=== PATIENT | female | born 1965 | race Caucasian/White ===

== ENCOUNTER 2016-12-10 07:15 | Emergency (ER) | payer MEDICAID ==
[~2016-12-10] VITALS: Ht 172.7 cm; Wt 85.0 kg
[~2016-12-10 07:15] MED LIST: CEPH500C3 PO; IBUP800T23 PO
[2016-12-10 07:19] VITALS: BP 164/85; PULSE 86; RESP 16; TEMP 98; O2SAT 97
--- NOTE | 2016-12-10 07:30 | PD ---
HPI . Right hip pain status post fall Chief Complaint: Fall Time Seen by Provider: 07:30 Travel History International Travel<30 days: No Contact w/Intl Traveler<30days: No Traveled to known affect area: No History of Present Illness HPI 51-year-old female with a history of anemia here with complaints of right hip pain status post fall yesterday around 2 PM. Patient had just finished cleaning a floor when she accidentally slipped and fell hurting her right hip. She is now complaining of difficulty moving her right hip. She does have some difficulty bearing weight, but is ambulatory. She says she thinks she may have pulled a muscle, however she is wanting to make sure she does not have any type of fracture as the pain feels deep within. She rates the pain as 8/10 without any radiation elsewhere. She denies any bowel or bladder dysfunction. She denies any saddle anesthesia. She has no other complaints. 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) Anxiety: No Depression: No Heart Rhythm Problems: No Cancer: Yes (uterine ) Cardiovascular Problems: No High Cholesterol: No Chemotherapy: No Chest Pain: No Congestive Heart Failure: No COPD: No Cerebrovascular Accident: No Diabetes: No Diminished Hearing: No Endocrine: No GERD: No Genitourinary: No Hiatal Hernia: No Immune Disorder: No Kidney Stones: No Musculoskeletal: Yes Neurologic: Yes Psychiatric: No Reproductive: No Respiratory: No Immunizations Current: No Migraines: Yes Radiation Therapy: No Renal Failure: No Seizures: No Sickle Cell Disease: No Sleep Apnea: No Thyroid Disease: No Ulcer: No ?: Not Tubal Ligation: Yes Past Surgical History Abdominal Surgery: No AICD: No Arteriovenous Shunt: No Cardiac Surgery: No Section: Yes Ear Surgery: Yes Endocrine Surgery: No Eye Surgery: No Genitourinary Surgery: No Gynecologic Surgery: Yes (tubal ligation in 2006) Insulin Pump: No Joint Replacement: No Oral Surgery: No Pacemaker: No Thoracic Surgery: No Other Surgery: Yes Social History Alcohol Use: No Tobacco Use: Yes Substance Use: No Allergies-Medications (Allergen,Severity, Reaction): Coded Allergies: Penicillin (Verified Allergy, Unknown, 12/10/16) Reported Meds & Prescriptions Reported Meds & Active Scripts Active Ibuprofen 800 Mg Tab 800 Mg PO TID Flexeril (Cyclobenzaprine HCl) 5 Mg Tab 5 Mg PO TID Review of Systems General / Constitutional: No: Fever Eyes: No: Visual changes HENT: No: Headaches Cardiovascular: No: Chest Pain or Discomfort Respiratory: No: Shortness of Breath Gastrointestinal: No: Abdominal Pain Genitourinary: No: Dysuria Musculoskeletal: Positive: Pain (right hip) Skin: No Rash Neurologic: No: Weakness Psychiatric: No: Depression Endocrine: No: Polydipsia Hematologic/Lymphatic: No: Easy Bruising Physical Exam Narrative GENERAL: AAO x 3, no acute distress, Well-nourished, well-developed patient. SKIN: Warm and dry. No visible rashes or bruising. HEAD: Normocephalic and atraumatic. EYES: No scleral icterus. No injection or drainage. ENT: No nasal drainage noted. Mucous membranes pink. Airway patent. NECK: Supple, trachea midline. No JVD. CARDIOVASCULAR: Regular rate and rhythm without murmurs, gallops, or rubs. RESPIRATORY: Breath sounds equal bilaterally. No accessory muscle use. No rhonchi or rales. GASTROINTESTINAL: Abdomen soft, non-tender, nondistended. EXTREMITIES: No cyanosis or edema. FULL ROM in right hip. Pain elicited with internal rotation of right hip joint. No bruising or edema. BACK: Nontender without obvious deformity. No CVA tenderness. PSYCH: AAO x 3, normal affect. Data Data Last Documented VS Vital Signs Date Time Temp Pulse Resp B/P Pulse Ox O2 Delivery O2 Flow Rate FiO2 12/10/16 07:33 Room Air 12/10/16 07:19 98.0 86 16 164/85 97 Orders Ibuprofen (Motrin) (12/10/16 07:45) Hip, Uni(Ap&Lat) W Ap Pelvis (12/10/16 07:33) MDM Medical Decision Making Medical Screen Exam Complete: Yes Emergency Medical Condition: Yes Medical Record Reviewed: Yes Differential Diagnosis right hip pain s/p fall, bone contusion,less likely fracture, muscle strain Narrative Course 51-year-old female with a history of anemia here with complaints of right hip pain status post fall yesterday around 2 PM. Patient had just finished cleaning a floor when she accidentally slipped and fell hurting her right hip. She is now complaining of difficulty moving her right hip. She does have some difficulty bearing weight, but is ambulatory. She says she thinks she may have pulled a muscle, however she is wanting to make sure she does not have any type of fracture as the pain feels deep within. She rates the pain as 8/10 without any radiation elsewhere. She denies any bowel or bladder dysfunction. She denies any saddle anesthesia. She has no other complaints. Patient seen and examined. She does have some pain elicited with internal rotation of the right hip. She also has some difficulty ambulating. I do not suspect a bony injury however I will go ahead and check an x-ray. Patient was given ibuprofen 800 mg in the ED for pain relief. If x-ray is negative, I will discharge her home with a course of muscle relaxers to see if that will help. I will also give her some ibuprofen for inflammation. If pain persists past 7-10 days, she will need to follow-up with primary care provider. Last Impressions Hip and Pelvis X-Ray 12/10/16 0733 Signed Impressions: Service Date/Time: Saturday, December 10, 2016 07:52 - CONCLUSION: No acute disease. Mikel Pate MD I discussed results with the patient. She was happy as she now knows she does not have a fracture. Meds discussed. She was in agreement with treatment plan. Patient verbalized understanding of instructions, questions were answered, and thanked me for their care. I advised them if their condition worsens, please return to the nearest emergency room for further care. Diagnosis Primary Impression: Right hip pain Additional Impression: Strain of muscle of right hip Qualified Code: S76.011A - Strain of muscle of right hip, initial encounter Patient Instructions: General Instructions Additional Instructions: Please return to emergency department if your symptoms return or worsen. Follow up with your primary care provider. Take medications as prescribed. If pain persists past 7-10 days, please follow-up with primary care provider. Rest the affected area as much as possible. Ice this area for 15-20 minutes at a time. You can do this every hour or as much as tolerated. Med/Other Pt SpecificInfo: Prescription(s) given Scripts Ibuprofen 800 Mg [id number] Mg PO TID #21 TAB Prov:Rahul Russell MD 12/10/16 Cyclobenzaprine (Flexeril)5 Mg Tab5 Mg PO TID #21 TAB Prov:Rahul Russell MD 12/10/16 Disposition: 01 DISCHARGE HOME Condition: Stable Emily Mccartney Dec 10, 2016 07:30
[2016-12-10] MEDS ORDERED: IBUPROFEN 800 MG TAB PO ONE (07:45)
--- NOTE | 2016-12-10 08:10 | RADRPT ---
EXAM DATE/TIME: 12/10/2016 07:52 [facility] COMPARISON: No previous studies available for comparison. INDICATIONS : Right hip pain, fall. MEDICAL HISTORY : None. SURGICAL HISTORY : None. ENCOUNTER: Initial ACUITY: 2 days PAIN SCORE: 8/10 LOCATION: Right lateral hip FINDINGS: Examination of the right hip was performed with AP Pelvis. The primary and secondary trabecular mary sherrie of the femoral neck is intact. The hip joint is of normal width without significant sclerosis or bony hypertrophy. The acetabulum is grossly intact. CONCLUSION: No acute disease. Mikel Pate MD on December 10, 2016 at 8:08 Board Certified Radiologist. This report was verified electronically.
[2016-12-10] MEDS ORDERED: IBUP800T23 PO (08:21)
[2016-12-10] MEDS ORDERED: CYCL5TAB PO (08:21)
== END 2016-12-10 08:34 | disposition home or self-care (01) ==
LOC: NEPK 07:15
DX: M25.551 Pain in right hip (principal); W01.0XXA Fall on same level from slipping, tripping and stumbling without subsequent striking against object, initial encounter
CPT/HCPCS: 73502; 99283

== ENCOUNTER 2017-07-13 18:04 | Emergency (ER) | payer MEDICAID ==
[~2017-07-13] VITALS: Ht 172.7 cm; Wt 90.0 kg
[~2017-07-13 18:04] MED LIST changes: -CEPH500C3 PO; +CYCL5TAB PO; +IBUP1TAB7 PO; -IBUP800T23 PO
[2017-07-13 18:16] VITALS: BP 136/93; PULSE 68; RESP 18; TEMP 97.5; O2SAT 97
--- NOTE | 2017-07-13 18:39 | PD ---
HPI Chief Complaint: Musculoskeletal Complaint Time Seen by Provider: 18:24 Travel History International Travel<30 days: No Contact w/Intl Traveler<30days: No Traveled to known affect area: No History of Present Illness HPI 51-year-old female presents to department complaining of left knee pain that started just prior to arrival. States she was walking up her stairs and felt her knee go forward and backwards and then collapsed onto herself. Patient also heard 2 pops as the movement occurred. States her pain is severe and worse with movement. Patient had instant, severe pain. Patient denies numbness or tingling of the extremity. She is able to move the however, reluctant. Patient admits she has a torn meniscus and wears a brace normally. Denies medical issues or chronic medication use. 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) Anxiety: No Depression: No Heart Rhythm Problems: No Cancer: Yes (uterine ) Cardiovascular Problems: No High Cholesterol: No Chemotherapy: No Chest Pain: No Congestive Heart Failure: No COPD: No Cerebrovascular Accident: No Diabetes: No Diminished Hearing: No Endocrine: No GERD: No Genitourinary: No Hiatal Hernia: No Immune Disorder: No Kidney Stones: No Musculoskeletal: Yes (RIGHT KNEE MENISCUS) Neurologic: Yes Psychiatric: No Reproductive: No Respiratory: No Immunizations Current: No Migraines: Yes Radiation Therapy: No Renal Failure: No Seizures: No Sickle Cell Disease: No Sleep Apnea: No Thyroid Disease: No Ulcer: No ?: Not Menopausal: Yes Tubal Ligation: Yes Past Surgical History Abdominal Surgery: No AICD: No Arteriovenous Shunt: No Cardiac Surgery: No Section: Yes Ear Surgery: Yes Endocrine Surgery: No Eye Surgery: No Genitourinary Surgery: No Gynecologic Surgery: Yes (tubal ligation in 2006, ) Insulin Pump: No Joint Replacement: No Oral Surgery: No Pacemaker: No Thoracic Surgery: No Other Surgery: Yes Social History Alcohol Use: No Tobacco Use: Yes (1/2 ppd) Substance Use: No Allergies-Medications (Allergen,Severity, Reaction): Coded Allergies: penicillin G (Unverified Allergy, Unknown, 07/13/17) Reported Meds & Prescriptions Reported Meds & Active Scripts Active No Active Prescriptions or Reported Medications Review of Systems Except as stated in HPI: all other systems reviewed are Neg Physical Exam Narrative GENERAL: Well-nourished, well-developed patient. SKIN: Focused skin assessment warm/dry. HEAD: Normocephalic. EYES: No scleral icterus. No injection or drainage. NECK: Supple, trachea midline. No JVD or lymphadenopathy. CARDIOVASCULAR: Regular rate and rhythm without murmurs, gallops, or rubs. RESPIRATORY: Breath sounds equal bilaterally. No accessory muscle use. GASTROINTESTINAL: Abdomen soft, non-tender, nondistended. MUSCULOSKELETAL: No cyanosis, or edema. Left knee- ecchymosis surrounding patella with effusion, popliteal pulses intact , pain with valgus, negative varus. Pain with axial loading of knee. TTP to palpation surrounding patella. FROM with pain. neurovascularly intact from knee to toes. BACK: Nontender without obvious deformity. No CVA tenderness. Data Data Last Documented VS Vital Signs Date Time Temp Pulse Resp B/P (MAP) Pulse Ox O2 Delivery O2 Flow Rate FiO2 07/13/17 18:16 97.5 68 18 136/93 (107) 97 Orders Orders Acetamin-Hydrocod 325-5 Mg ([place] 5-325 (07/13/17 18:45) Knee, Ltd (1 Or 2vws) (07/13/17 ) MDM Medical Decision Making Medical Screen Exam Complete: Yes Emergency Medical Condition: Yes Differential Diagnosis Knee sprain versus strain versus fracture versus vascular disruption Narrative Course 51-year-old female presents to department complaining of left knee pain that started just prior to arrival. States she was walking up her stairs and felt her knee go forward and backwards and then collapsed onto herself. Patient also heard 2 pops as the movement occurred. States her pain is severe and worse with movement. Patient had instant, severe pain. Patient denies numbness or tingling of the extremity. She is able to move the however, reluctant. Patient admits she has a torn meniscus and wears a brace normally. Denies medical issues or chronic medication use. Vital signs- stable. Physical exam- no evidence of popliteal artery involvement- neurovascularly intact. FROM with pain, edema and ecchymosis surrounding joint. Neurovascularly intact. Hydrocodone for pain in the ED. Xray and dispo pending as of transfer of care to [facility]. Scripts No Active Prescriptions or Reported Meds Condition: Stephani Palacios Jul 13, 2017 18:39
[2017-07-13] MEDS ORDERED: ACETAMINOPHEN/HYDROcodone 325 MG/5 MG TAB PO ONE (18:45)
--- NOTE | 2017-07-13 19:32 | RADRPT ---
EXAM DATE/TIME: 07/13/2017 19:03 [facility] COMPARISON: No previous studies available for comparison. INDICATIONS : Left knee pain. Patient heard a pop tonight. MEDICAL HISTORY : None. SURGICAL HISTORY : None. ENCOUNTER: Initial ACUITY: 1 day PAIN SCORE: 7/10 LOCATION: Left anterior knee. FINDINGS: Two view examination of the left knee demonstrates no evidence of fracture or dislocation. Bony mine ralization is normal. The suprapatellar soft tissues have a normal configuration. Vascular calcific ation in the distal thigh. CONCLUSION: No evidence of recent bone injury. Marques Navarro MD on July 13, 2017 at 19:29 Board Certified Radiologist. This report was verified electronically.
[2017-07-13] MEDS ORDERED: NAPR500T2 PO (19:48)
--- NOTE | 2017-07-13 19:48 | PD ---
Physical Exam Narrative Patient was signed out to me by previous provider pending x-ray results. Please see their documentation for full H&P. GENERAL: Well-developed, overly nourished, in no acute distress, and non-ill appearing. SKIN: Focused skin assessment warm and dry. HEAD: Atraumatic. Normocephalic. EYES: Pupils equal and round. EOMI. No scleral icterus. No injection or drainage. ENT: No nasal bleeding or discharge. Mucous membranes pink and moist. NECK: Trachea midline. Supple. No nuclear rigidity. RESPIRATORY: No accessory muscle use. No respiratory distress. MUSCULOSKELETAL: No obvious deformities. No clubbing. No cyanosis. No edema. Decreased range of motion left knee finger pain. Knee: Negative patellar apprehension, varus and valgus maneuvers, anterior draw test, and Cory test. Pulses equal BL distal to injury. Capillary refill less than 2 seconds distal to injury and equal BL. FROM distal to injury and equal BL. Strength distal to injury equal BL. NV intact distal to injury. Dorsal pulses equal BL. Sensation equal BL 1st web space. NEUROLOGICAL: Awake and alert. No obvious cranial nerve deficits. Motor grossly within normal limits. Normal speech. PSYCHIATRIC: Appropriate mood and affect; insight and judgment normal. Data Data Last Documented VS Vital Signs Date Time Temp Pulse Resp B/P (MAP) Pulse Ox O2 Delivery O2 Flow Rate FiO2 07/13/17 20:55 63 16 165/86 (112) 97 Room Air 07/13/17 18:16 97.5 Orders Orders Acetamin-Hydrocod 325-5 Mg ([place] 5-325 (07/13/17 18:45) Knee, Ltd (1 Or 2vws) (07/13/17 ) Splint Or Brace Apply/Monitor (07/13/17 19:40) Ed Discharge Order (07/13/17 19:40) [facility] Supervised Visit with HEIDI: No Interpretation(s) Last Impressions Knee X-Ray 07/13/17 0000 Signed Impressions: Service Date/Time: Thursday, July 13, 2017 19:03 - CONCLUSION: No evidence of recent bone injury. Mraques Navarro MD Narrative Course There is no clinical evidence to suspect bony injury by exam. Radiographic examination revealed no fracture seen at this time. No obvious ligamental injury or obvious internal derangement is noted at this time. The anterior, posterior, lateral and medial collateral ligaments are intact and symmetrical. The distal extremity appears neurovascularly intact, without evidence of neurovascular injury nor compartment syndrome. Tendon exam also was intact. The effected limb was immobilized. The patient was discharged on pain medication along with sprain and splint care instructions and given warnings for vascular compromise. The patient is to follow up with Orthopedics. The patient agrees with plan. Patient in no obvious distress upon re-evaluation. All pertinent Radiology result(s) discussed with patient. Patient was asked if they wanted to speak to my attending, which the patient did not wish to do at this time. Any questions/ concerns in reference to patient diagnosis/condition discussed and clarified prior to patient's discharge. Reinforced sheer importance of close follow up with patient's primary physician or primary care clinic and/or orthopedic. Instructed patient to return to ED immediately, if symptoms return/worsen. Patient showed understanding of above instructions. Further instructions and recommendations were detailed in discharge paperwork. Patient ambulated without difficulty out of ED at discharge with crutches. Diagnosis Primary Impression: Left knee sprain Qualified Codes: S83.92XA - Sprain of unspecified site of left knee, initial encounter Referrals: Jose J Dao MD [facility] Patient Instructions: Crutch Instructions (ED), General Instructions, Knee Immobilizer (ED), Knee Sprain (DC) Additional Instruction: Follow-up with your primary care physician and/or orthopedic in 3-5 days for reevaluation. Take all medication as prescribed. Apply ice to affected area clean as far as needed for pain. Use knee immobilizer while awake until reevaluated. Use crutches as needed for additional support when walking. Return to the emergency department if symptoms get worse. Med/Other Pt SpecificInfo: Prescription(s) given Scripts Naproxen (Naproxen) 500 Mg Tab 500 MG PO Q12HR Y for PAIN SCALE 1 TO 10, #14 TAB 0 Refills Prov: Chacho Gooden MD 07/13/17 Disposition: 01 DISCHARGE HOME Condition: Stable Yung Oliva Jul 13, 2017 19:48
[2017-07-13 20:55] VITALS: BP 165/86; PULSE 63; RESP 16; O2SAT 97
== END 2017-07-13 21:50 | disposition home or self-care (01) ==
LOC: NEPD 18:04
DX: S83.92XA Sprain of unspecified site of left knee, initial encounter (principal)
CPT/HCPCS: 73560; 99283; E0113; L1830